=== PATIENT | female | born 1975 | race Caucasian/White ===

== ENCOUNTER 2017-04-15 03:27 | Emergency (ER) | payer OTHER ==
[~2017-04-15] VITALS: Ht 175.3 cm; Wt 131.5 kg
[2017-04-15] MEDS ORDERED: MONONESSA 28 T1 EACH PO (05:10)
[2017-04-15] MEDS ORDERED: TOPAMAX50 MG PO (05:10)
[2017-04-15] MEDS ORDERED: CYMBALTA30 MG PO (05:11)
== END 2017-04-15 05:05 | disposition short-term general hospital (02) ==
LOC: ER 03:27
DX: G43.909 Migraine, unspecified, not intractable, without status migrainosus (principal); R11.2 Nausea with vomiting, unspecified; Z88.2 Allergy status to sulfonamides; Z79.899 Other long term (current) drug therapy
CPT/HCPCS: J1885; J2550